=== PATIENT | female | born 1965 | race Caucasian/White ===

== ENCOUNTER → 2016-09-29 13:45 | Emergency (ER) | payer OTHER ==
[~2016-09-29 13:45] MED LIST: AUGMENTIN PO; COMBIVENT INH14.7 GM INH; NO MEDICATIONS; PERCOCET5/325 PO; PHENERGAN W/CO120 ML PO; PREDNISONE PO; PROAIR HFA8.5 GM INH; PSEUDOEPHEDRINE30 M1; VIBRAMYCIN100 M1 DOB
== END | disposition left against medical advice (07) ==
LOC: CED 13:45
DX: Z53.21 Procedure and treatment not carried out due to patient leaving prior to being seen by health care provider (principal)